=== PATIENT | female | born 1990 | race Caucasian/White ===

== ENCOUNTER 2023-06-26 10:54 | Outpatient (AMB) | payer MEDICAID, SELFPAY ==
--- NOTE | 2023-06-26 10:57 | A.OFFVIS_ITS ---
Intake Vital Signs 06/26/23 11:02 Height 5 ft Weight 98 lb 6 oz BMI 19.2 BP 98/64 Blood Pressure Location Rt brachial Position Sitting Pulse 93 Pulse Source Pulse Oximeter Pulse Oximetry (%) 98 Intake Visit Reasons: ENP-Concussion w/loss of Consciousness/Lvm Intake Note: Patient presents for loss of consciousness. I've had 3 concussion in 3 years last one was in November. Allergies codeine Allergy (Severe, Verified 06/18/23 10:01) Rash naproxen Allergy (Severe, Verified 06/18/23 10:01) Muscle Pain felxeril Allergy (Severe, Uncoded 06/26/23 11:04) sleep tpo long after taking Medication List - Last Reconciled 06/26/23 by Evangelina Nelson, NAYELI amitriptyline 50 mg PO BEDTIME atenolol 25 mg PO DAILY ibuprofen 600 mg PO Q8H PRN levonorgestrel (Mirena) intrauterine lorazepam 0.5 mg PO BEDTIME PRN rizatriptan 5 mg PO Q2-4H PRN HPI HPI Comments History of Present Illness Details Left-handed 33-yr-old female presents for new pt evaluation of headache disorder, concussion. Pt is accompanied by her partner. Pt comes to reestablish care with neurology. Pt states she has migraine since age 5. However, the migraine attacks and frequency have increased in the last couple of years following a series on concussions, the last being in November 2022. She has also had increased cognitive difficulties since the concussions- STM lapses, brain fog. Pt reports in November 2022, she had LOC and fall from a toilet while trying to have a constipated bowel movement. In Feb 2022, she had another concussion, she fell while packing up her minivan and in an effort not to fall back, tried to move forward and struck the top of her head. She was out of work x's 3 months d/t migraine and cognitive s/s. She had another concussion in january 2021- was out of work x's 2 weeks. Since that concussion, there has been an uptick in her migraine attack frequency and intensity (previously a couple of attacks per month, but increased to 3-4 times a week). Headache questionnaire: Previous work-up? None Typical headache characteristics: Prodrome symptoms? Unaware Aura? Varies- more often left eye blurriness. Rarely bejeweled look- like a kaleidoscope. Location, quality, characteristics? Often in bilateral temples, can be back of head/neck, and occasionally midfrontal- throbbing, sharp shooting. . Pain intensity? Usually 5-7/10, at worst 10/10 Associated symptoms? Photophobia, phonophobia, rarely osmophobia, some allodyni a, skin sensitivity/creepy crawling sensation (does have some RLS s/s), nausea, vomiting if severe, worsening brain fog, some dizziness, activity intolerance. Focal weakness, Parethesias, Autonomic s/s? sometimes numbness in arms, some nasal congestion Postdrome? residual Triggers? not eating/drinking, skipping coffee, sleep deprivation Any positional, valsalva, exertional, sexual activity triggers? none Menstrual triggers? has h/o menstrual migraine- but resolved w/ using IUD Time of day? mid-afternoon to early evening Duration? 2-3 hrs to 2-3 days, the longest was 2 wks. Frequency? 15-20 headaches day per month How does headache impact your life? 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 Current acute medication use/interventions: Rizatriptan 5mg ODT- helps some but causes nausea. Previous acute medication use: Sumatriptan- does not recall effect Current preventative medication use: Amitriptyline 50mg qhs, Atenolol 25mg qam. Previous preventative medication use: None other Non-pharmacological interventions: Meditate, some yoga, somatic movements History of musculoskeletal disorders or injury? Left shoulder pain x's approx 1.5 yrs- scheduled for MRI, f/b [facility]. Has had jaw expansion suregry- s/p hardware placement. History of concussion/head injury? as above History of mood disorder? anxiety, depression, PTSD. Has some hyperactivity of her mind, poor focus- since childhood- may need more/less background noise, has never had ADD testing. History of sleep disorder? Sleep issues. Difficulty falling asleep or staying asleep. Can be restless. Very vivid dreams. Rare leg cramps. Has creepy crawling sensation at rest. History of respiratory disease? Asthma History of CV disease? None. History of coagulopathy? None. Has h/o anemia History of endocrine or metabolic disease? None History of seizure? None History of GI disorder? Can have constipation at times Family planning? None Family history of migraine or other headache disorder? Mother, maternal grandmother, paternal grandmother and aunt. [facility] Surgical History (Updated 06/18/23 @ 10:06 by MADALYN Joyce) History of mandibular surgery Family History Father Cleft lip Asthma Brother Asthma Hyperlipidemia Sister Asthma Social History Alcohol intake: never Patient Tobacco Use Status: Never used Tobacco Substance Use Type: Marijuana Review of Systems Const Details: See scanned ROS form Physical Exam Vital Signs: Last Vital Signs Pulse 93 06/26/23 11:02 BP 98/64 06/26/23 11:02 Pulse Ox 98 06/26/23 11:02 BMI result Body Mass Index 19.2 Const Orientation/consciousness: patient oriented x3 HEENT Other: No palpable scalp tenderness. Head: Yes normocephalic Resp Effort & Inspection: normal respiratory effort and able to speak in complete sentences Neuro General: patient oriented x3 Cranial nerves: Yes CN's II-XII intact bilaterally Cognition (Neuro): normal cognition Gait exam (Neuro): Normal gait present Motor exam (neuro): 5/5 motor strength present throughout Deep tendon reflexes (DTR's): Right triceps reflex intensity grade: 2+, Left triceps reflex intensity grade: 2+, Rt Biceps (C5, C6): 2+, Left biceps reflex intensity grade: 2+, Right brachioradialis reflex intensity grade: 2+, Left brachioradialis reflex intensity grade: 2+, Right patellar reflex intensity grade: 2+ and Left patellar reflex intensity grade: 2+ Coordination: [id number] test normal Pupils: Normal pupillary reactivity/response: bilateral Psych Appearance: grossly normal Mental Status: mental status grossly normal Speech and movement: Normal speech and movement present Affect: normal affect Attitude: cooperative Thought process: Normal thought process present Assessment & Plan Assessment & Plan (1) Postconcussive syndrome: Code(s): F07.81 - Postconcussional syndrome (2) Anemia: Code(s): D64.9 - Anemia, unspecified (3) Chronic migraine without aura: Code(s): G43.709 - Chronic migraine without aura, not intractable, without status migrainosus (4) Migraine with aura: Comment: Rare episodes of left eye visual aura - sees bejeweled images. Numbness in arms. Code(s): G43.109 - Migraine with aura, not intractable, without status migrainosus (5) Cognitive dysfunction: Code(s): F09 - Unspecified mental disorder due to known physiological condition (6) Sleep difficulties: Comment: restlessness, creepy crawling sensation- ? RLS, ? PLMS Code(s): G47.9 - Sleep disorder, unspecified Plan Pt advised to undergo brain MRI d/t worsening headaches, cognitive difficulties in setting of multiple concussions. Will check labs for common etiologies of RLS s/s, which may be negatively affecting her sleep quality. For overall headache management: Discussed importance of good self-care, including but not limited to maintaining a healthy diet, adequate fluid intake, adequate sleep, and engaging in regular physical activity. For headache triggers: Track headaches, especially after any treatment regimen changes. Migraine [employer] is one of many headache tracking apps. Light sensitivity tips: Patient may try blue light filtering glasses, green glasses, green light therapy.. For acute headache treatment: Discussed importance of taking acute medications at the first sign of headache, however stressed importance of avoiding acute medication overuse (especially with combined headache medications). Hold Rizatripatn ODT- causes nausea. Trial Sumatriptan 100mg tab, 1/2 - 1 tab (50-100mg) at onset of headache, may repeat in 2 hours. Max of 2 tabs (200mg) per 24 hours. May adjunct with OTC Tylenol 650mg q 4 hours, Ibuprofen 600mg q 6 hours, or Naproxen 440mg q 12 hrs prn. Reviewed potential adverse effects of triptans, including but not limited to nausea, fatigue, chest tightness/tingling (usually passes within a few minutes), medication overuse headaches. Previous acute migraine medication trials: Rizatripatn ODT- causes nausea Acute migraine medication contraindications: None at this time For headache prevention medication: Discussed that preventative medications should be taken routinely as prescribed for best effect, it may take several weeks for full effect to take effect. Start Riboflavin 400mg qam Start Magnesium 400mg qhs Start Emgality 240mg sc x's 1 then 120mg sc q month Continue Amitriptyline 50mg qhs Continue Atenolol 25mg qam. Reviewed potential adverse effects of Emgality, including but not limited to injection site reactions. Previous migraine prevention medication trials: None other Migraine prevention medication contraindications: Would not increase TCA d/t RLS s/s or BB d/t asthma dx. Information also given on non-pharmacological interventions, such as Cefaly or Nerivio neuromodulation devices. Pt to follow-up in 4-6 wks or sooner prn. Orders: Orders Comprehensive Met. Panel Today D64.9 - Anemia, unspecified, F09 - Unspecified mental disorder due to known physiological condition, F32.A - Depression, unspecified, R53.83 - Other fatigue Ferritin Today D64.9 - Anemia, unspecified, F09 - Unspecified mental disorder due to known physiological condition, F32.A - Depression, unspecified, R53.83 - Other fatigue Transferrin Today D64.9 - Anemia, unspecified, F09 - Unspecified mental disorder due to known physiological condition, F32.A - Depression, unspecified, R53.83 - Other fatigue Vitamin B12 and Folate Today D64.9 - Anemia, unspecified, F09 - Unspecified mental disorder due to known physiological condition, R53.83 - Other fatigue MR head/brain wo con Today F07.81 - Postconcussional syndrome, F09 - Unspecified mental disorder due to known physiological condition, R20.0 - Anesthesia of skin Complete Blood Count Auto Diff Today D64.9 - Anemia, unspecified, F09 - Unspecified mental disorder due to known physiological condition, F32.A - Depression, unspecified, R53.83 - Other fatigue IRON PROFILE Today D64.9 - Anemia, unspecified, F09 - Unspecified mental disorder due to known physiological condition, F32.A - Depression, unspecified, R53.83 - Other fatigue TSH reflex Free T4 Today F09 - Unspecified mental disorder due to known physiological condition, F32.A - Depression, unspecified, R53.83 - Other fatigue Medications: New riboflavin (vitamin B2) 400 mg PO DAILY 30 days 30 tabs 6RF magnesium oxide may hold for loose stools 400 mg PO BEDTIME 30 days 30 tabs 6RF galcanezumab-gnlm (Emgality Pen) 120 mg subcut ONCE 30 days 1 mL 6RF Coding Level of Care Code New Pt Level 4 (52368) Diagnoses Postconcussive syndrome F07.81 Anemia D64.9 Chronic migraine without aura G43.709 Migraine with aura G43.109 Cognitive dysfunction F09 Sleep difficulties G47.9
[2023-06-26 11:02] VITALS: BP 98/64; PULSE 93; O2SAT 98; BMI 19.2
== END 2023-06-26 12:07 | disposition home or self-care (01) ==
PROVIDERS: PCP Family Medicine; Visit Provider Nurse Practitioner Family
DX: G43.709 Chronic migraine without aura, not intractable, without status migrainosus (principal); G43.109 Migraine with aura, not intractable, without status migrainosus; D64.9 Anemia, unspecified; Z87.820 Personal history of traumatic brain injury; F06.70 Mild neurocognitive disorder due to known physiological condition without behavioral disturbance; G47.9 Sleep disorder, unspecified
CPT/HCPCS: 99204

== ENCOUNTER → 2023-06-26 10:54 | Outpatient (BNVA) | payer MEDICAID, SELFPAY | PROVIDERS: PCP Family Medicine; Visit Provider Nurse Practitioner Family | DX: G43.109 Migraine with aura, not intractable, without status migrainosus (principal); G43.709 Chronic migraine without aura, not intractable, without status migrainosus; F07.81 Postconcussional syndrome; G47.9 Sleep disorder, unspecified; F09 Unspecified mental disorder due to known physiological condition; D64.9 Anemia, unspecified | CPT/HCPCS: 99202 ==

== ENCOUNTER 2023-08-06 07:41 | Outpatient (AMB) | payer MEDICAID, SELFPAY ==
--- NOTE | 2023-08-06 07:43 | A.OFFVIS_ITS ---
Intake Vital Signs 08/06/23 07:46 Height 5 ft BP 94/80 Blood Pressure Location Rt brachial Position Sitting Pulse 71 Pulse Source Pulse Oximeter Pulse Oximetry (%) 99 Oxygen Delivery Method Room Air Intake Visit Reasons: 6 wks f/u per K.H Concussion w/loss of Conscious Intake Note: Patient presents for 6 week follow up. I've been having eye twitch for about a week and a half, very frustrating Allergies codeine Allergy (Severe, Verified 08/06/23 07:47) Rash naproxen Allergy (Severe, Verified 08/06/23 07:47) Muscle Pain felxeril Allergy (Severe, Uncoded 08/06/23 07:47) sleep tpo long after taking Medication List - Last Reconciled 08/06/23 by NAYELI Aguiar amitriptyline 50 mg PO BEDTIME atenolol 25 mg PO DAILY galcanezumab-gnlm (Emgality Pen) 120 mg subcut ONCE 30 days ibuprofen 600 mg PO Q8H PRN levonorgestrel (Mirena) intrauterine lorazepam 0.5 mg PO BEDTIME PRN magnesium oxide 400 mg PO BEDTIME 30 days riboflavin (vitamin B2) 400 mg PO DAILY 30 days rizatriptan 5 mg PO Q2-4H PRN HPI HPI Comments History of Present Illness Details 33-yr-old female presents for f/u visit. Pt denies any significant interval medical changes. She has not had labs done yet- family has been repeatedly sick w/ RSV, strep, Covid. Pt herself has not been sick. She is having less headaches overall. She is having a lower grade headache/migraine- about once a week. She has been sleeping more and reducing her stress level. Increased exercise, yoga, and doing float spa once a month. Weight is stable since last visit. Eating better, Increased protein intake. She has been noticing a left eye twitch x's the past 1.5 wks- it is visible to others, and one day it made it look like the lights were flickering. She has started Emgality, B2 Mag, and also D and K. She is compliant w/ Amitriptyline. Baseline headache characteristics: Aura- varies- more often left eye blurriness. Rarely bejeweled look- like a kaleidoscope. Headache: 5-7/10, at worst 10/10 pain often in bilateral temples, can be back of head/neck, and occasionally midfrontal- throbbing, sharp shooting. A/w: Photophobia, phonophobia, rarely osmophobia, some allodynia, skin sensi tivity/creepy crawling sensation (does have some RLS s/s), nausea, vomiting if severe, worsening brain fog, some dizziness, activity intolerance, sometimes numbness in arms, some nasal congestion. And residual postdrome. Triggers- not eating/drinking, skipping coffee, sleep deprivation. h/o menstrual migraine- but resolved w/ using IUD Time of day? mid-afternoon to early evening Current number of typical migraine days per month: 4 Average painfulness of these migraines: milder Current number of non-migraine headache days per month: 4 Average painfulness of these headaches: mild Current number of days of acute medication use per month: 4 Previous number of migraine days per month prior to starting current preventive tx: 2 -3 hrs to 2-3 days, the longest was 2 wks and 15-20 headaches day per month PFSH Surgical History History of mandibular surgery Family History Father Cleft lip Asthma Brother Asthma Hyperlipidemia Sister Asthma Social History Alcohol intake: never Patient Tobacco Use Status: Never used Tobacco Substance Use Type: Marijuana Physical Exam Vital Signs: Last Vital Signs Pulse 71 08/06/23 07:46 BP 94/80 08/06/23 07:46 Pulse Ox 99 08/06/23 07:46 Oxygen Delivery Method Room Air 08/06/23 07:46 Const General: cooperative and no acute distress Orientation/consciousness: patient oriented x3 Resp Effort & Inspection: normal respiratory effort and able to speak in complete sentences Neuro General: patient oriented x3 Cranial nerves: Yes CN's II-XII intact bilaterally Cognition (Neuro): normal cognition Psych Appearance: grossly normal Mental Status: mental status grossly normal Speech and movement: Normal speech and movement present Affect: normal affect Attitude: cooperative Assessment & Plan Assessment & Plan (1) Eye twitch: Code(s): G24.5 - Blepharospasm (2) Fatigue: Code(s): R53.83 - Other fatigue (3) Migraine with aura: Comment: Rare episodes of left eye visual aura - sees bejeweled images. Numbness in arms. Code(s): G43.109 - Migraine with aura, not intractable, without status migrainosus (4) Chronic migraine without aura: Code(s): G43.709 - Chronic migraine without aura, not intractable, without status migrainosus (5) Sleep difficulties: Comment: restlessness, creepy crawling sensation- ? RLS, ? PLMS Code(s): G47.9 - Sleep disorder, unspecified Plan For eye twitch- Will check labs. Will f/u on order for brain MRI d/t worsening headaches, cognitive difficulties in setting of multiple concussions. Labs as ordered for common etiologies of RLS s/s, which may be negatively affecting her sleep quality. ? For overall headache management: Continue to optimize good self-care, including but not limited to maintaining a healthy diet, adequate fluid intake, adequate sleep, and engaging in regular physical activity. Track headaches. ? For acute headache treatment: Sumatriptan 100mg tab, 1/2 - 1 tab (50-100mg) at onset of headache, may repeat in 2 hours. Max of 2 tabs (200mg) per 24 hours. May adjunct with OTC Tylenol 650mg q 4 hours, Ibuprofen 600mg q 6 hours, or Naproxen 440mg q 12 hrs prn. Previous acute migraine medication trials: Rizatripatn ODT- causes nausea Acute migraine medication contraindications: None at this time ? For headache prevention medication: Riboflavin 400mg qam Magnesium 400mg qhs Emgality 120mg sc q month Continue Amitriptyline 50mg qhs- consider decreasing if eye twitch persists. Continue Atenolol 25mg qam. Previous migraine prevention medication trials: None other Migraine prevention medication contraindications: Would not increase TCA d/t RLS s/s or BB d/t asthma dx. ? Pt to follow-up in 6 months or sooner prn. Orders: Orders Amitriptyline (Elavil), Serum 08/06/23 G24.5 - Blepharospasm, R53.83 - Other fatigue Magnesium 08/06/23 G24.5 - Blepharospasm, R53.83 - Other fatigue Creatine Kinase Total 08/06/23 G24.5 - Blepharospasm, R53.83 - Other fatigue Coding Level of Care Code Est Pt Level 4 (96283) Diagnoses Eye twitch G24.5 Fatigue R53.83 Migraine with aura G43.109 Chronic migraine without aura G43.709 Sleep difficulties G47.9
[2023-08-06 07:46] VITALS: BP 94/80; PULSE 71; O2SAT 99
== END 2023-08-06 08:29 | disposition home or self-care (01) ==
PROVIDERS: PCP Family Medicine; Visit Provider Nurse Practitioner Family
DX: G24.5 Blepharospasm (principal); R53.83 Other fatigue; G43.109 Migraine with aura, not intractable, without status migrainosus; G43.709 Chronic migraine without aura, not intractable, without status migrainosus; G47.9 Sleep disorder, unspecified
CPT/HCPCS: 99214

== ENCOUNTER → 2023-08-06 07:41 | Outpatient (BNVA) | payer MEDICAID, SELFPAY | PROVIDERS: PCP Family Medicine; Visit Provider Nurse Practitioner Family | DX: G24.5 Blepharospasm (principal); G43.109 Migraine with aura, not intractable, without status migrainosus; G43.709 Chronic migraine without aura, not intractable, without status migrainosus; G47.9 Sleep disorder, unspecified; R53.83 Other fatigue | CPT/HCPCS: 99212 ==

== ENCOUNTER 2023-08-27 18:44 | Outpatient (REF) | payer MEDICAID, SELFPAY ==
--- NOTE | ~2023-08-27 | MR_ITS ---
EXAMINATION: MR BRAIN WITHOUT CONTRAST CLINICAL INFORMATION: Post concussion syndrome. COMPARISON: None. TECHNIQUE: Multiplanar, multisequence imaging of the brain was performed without contrast. FINDINGS: No diffusion abnormalities are identified to suggest an acute infarct. The ventricles are normal in size. No mass effect or midline shift is seen. There are a few foci of T2 hyperintense signal abnormality in the right frontal centrum semiovale, the largest measuring 1.5 cm in size. The remainder of the brain parenchyma appears normal. No extra-axial fluid collections are seen. The brainstem and cerebellum are normal. The gradient refocused acquisition demonstrates no pathologic magnetic susceptibility artifact to indicate underlying acute or chronic blood products. The craniovertebral junction, marrow signal, and midline structures are normal. The major intracranial flow voids at the level of the [place] are preserved. The dural venous sinus flow voids are maintained. The mastoid air cells and paranasal sinuses are well aerated. MR/MR head/brain wo con IMPRESSION: Aforementioned foci of signal abnormality in the high right frontal white matter are entirely nonspecific. Otherwise, no acute intracranial process.
== END 2023-08-27 18:45 | disposition home or self-care (01) ==
LOC: HO.MRI 18:44
PROVIDERS: Visit Provider Nurse Practitioner Family
DX: F07.81 Postconcussional syndrome (principal); F09 Unspecified mental disorder due to known physiological condition; R20.0 Anesthesia of skin
CPT/HCPCS: 70551

== ENCOUNTER 2023-11-21 08:19 | Outpatient (AMB) | payer MEDICAID, SELFPAY ==
[2023-11-21 08:28] VITALS: BP 98/72; PULSE 100; O2SAT 98; BMI 18.0
--- NOTE | 2023-11-21 08:28 | A.OFFVIS_ITS ---
Vital Signs 11/21/23 08:28 Height 5 ft Weight 92 lb BMI 18.0 BP 98/72 Blood Pressure Location Rt brachial Position Sitting Pulse 100 Pulse Source Pulse Oximeter Pulse Oximetry (%) 98 Oxygen Delivery Method Room Air Intake Visit Reasons: 6 mnts f/u-LVM Intake Note: Patient presents for 6 month follow up. patient's headaches are better, emgality seems to be working Allergies codeine Allergy (Severe, Verified 11/21/23 08:31) Rash naproxen Allergy (Severe, Verified 11/21/23 08:31) Muscle Pain felxeril Allergy (Severe, Uncoded 11/21/23 08:31) sleep tpo long after taking Medication List - Last Reconciled 11/21/23 by NAYELI Aguiar amitriptyline 50 mg PO BEDTIME atenolol 25 mg PO DAILY galcanezumab-gnlm (Emgality Pen) 120 mg subcut ONCE 30 days ibuprofen 600 mg PO Q8H PRN levonorgestrel (Mirena) intrauterine lorazepam 0.5 mg PO BEDTIME PRN magnesium oxide 400 mg PO BEDTIME 30 days riboflavin (vitamin B2) 400 mg PO DAILY 30 days rizatriptan 5 mg PO Q2-4H PRN HPI Comments Details: 33-yr-old female presents for f/u visit. Pt denies any significant interval medical changes. She slowly weaned off the Amitriptyline. The constant left eye twitching has stopped. But does still have intermittent facial twit- left cheek, right eyebrow, right lower lid. The right eyebrow twitch seems to be triggered by stress- her children arguing. She has also been noticing bilateral hip and leg numbness at night. No interval syncopal episodes. Continues to have episodes of cognitive difficulties- spacing out, difficulty doing her homework. Pt did the labs- however we do not have the results. Since June, she has had 3-4 migraine attacks. Most were easily treated w/ Ibuprofen. Only 1 lasted 2 days, but notes she had not taken water well before that. Tolerating Emgality well. Still has a friend who is a nurse do it for her. Baseline headache characteristics: Aura: Varies- more often left eye blurriness. Rarely bejeweled look- like a kaleidoscope. Moderate to Severe, Often in bilateral temples, can be back of head/neck, and occasionally midfrontal- throbbing, sharp shooting. A/w photophobia, phonophobia, rarely osmophobia, some allodynia, skin sensitivity/creepy crawling sensation (does have some RLS s/s), nausea, vomiting if severe, worsening brain fog, some dizziness, activity intolerance, sometimes numbness in arms, some nasal congestion 08/27/23, MR BRAIN WITHOUT CONTRAST FINDINGS: No diffusion abnormalities are identified to suggest an acute infarct. The ventricles are normal in size. No mass effect or midline shift is seen. There are a few foci of T2 hyperintense signal abnormality in the right frontal centrum semiovale, the largest measuring 1.5 cm in size. The remainder of the brain parenchyma appears normal. No extra-axial fluid collections are seen. The brainstem and cerebellum are normal. The gradient refocused acquisition demonstrates no pathologic magnetic susceptibility artifact to indicate underlying acute or chronic blood products. The craniovertebral junction, marrow signal, and midline structures are normal. The major intracranial flow voids at the level of the [place] are preserved. The dural venous sinus flow voids are maintained. The mastoid air cells and paranasal sinuses are well aerated. IMPRESSION: Aforementioned foci of signal abnormality in the high right frontal white matter are entirely nonspecific. Otherwise, no acute intracranial process. [facility] Surgical History History of mandibular surgery Family History Father Cleft lip Asthma Brother Asthma Hyperlipidemia Sister Asthma Social History Alcohol intake: never Patient Tobacco Use Status: Never used Tobacco Substance Use Type: Marijuana Physical Exam Vital Signs: Last Vital Signs Pulse 100 11/21/23 08:28 BP 98/72 11/21/23 08:28 Pulse Ox 98 11/21/23 08:28 Oxygen Delivery Method Room Air 11/21/23 08:28 BMI result Body Mass Index 18.0 Const General: cooperative and no acute distress Orientation/consciousness: patient oriented x3 Resp Effort & Inspection: normal respiratory effort and able to speak in complete sentences Neuro General: patient oriented x3 Cranial nerves: Yes CN's II-XII intact bilaterally Cognition (Neuro): normal cognition Psych Appearance: grossly normal Mental Status: mental status grossly normal Speech and movement: Normal speech and movement present Affect: normal affect Attitude: cooperative Assessment & Plan Assessment & Plan (1) Abnormal finding on MRI of brain: Comment: a few foci of T2 hyperintense signal abnormality in the right frontal centrum semiovale, the largest measuring 1.5 cm in size. Code(s): R90.89 - Other abnormal findings on diagnostic imaging of central nervous system Category: Medical (2) Cognitive dysfunction: Code(s): F09 - Unspecified mental disorder due to known physiological condition Category: Medical (3) Bilateral leg numbness: Code(s): R20.0 - Anesthesia of skin Category: Medical (4) Facial twitching: Code(s): G51.4 - Facial myokymia Category: Medical (5) Migraine with aura: Comment: Rare episodes of left eye visual aura - sees bejeweled images. Numbness in arms. Code(s): G43.109 - Migraine with aura, not intractable, without status migrainosus Category: Medical Plan For eye twitch and RLS- Labs WNL. Reviewed brain MRI w/o report and images- Overall normal, with a few foci of T2 hyperintense signal abnormality in the right frontal centrum semiovale, the largest measuring 1.5 cm in size. Pt advised to undergo f/u brain MRI w/wo, and c-spine, and t-spine MRI w/wo and EEG- to further evaluate 1.5 cm white matter lesion, as pt has cognitive difficulties, h/o syncope, facial twitching, leg numbness. For overall headache management: Continue to optimize good self-care, including but not limited to maintaining a healthy diet, adequate fluid intake, adequate sleep, and engaging in regular physical activity. Track headaches. ? For acute headache treatment: Sumatriptan 100mg tab, 1/2 - 1 tab (50-100mg) at onset of headache, may repeat in 2 hours. Max of 2 tabs (200mg) per 24 hours. May adjunct with OTC Tylenol 650mg q 4 hours, Ibuprofen 600mg q 6 hours, or Naproxen 440mg q 12 hrs prn. Previous acute migraine medication trials: Rizatripatn ODT- causes nausea Acute migraine medication contraindications: None at this time ? For headache prevention medication: Riboflavin 400mg qam Magnesium 400mg qhs Emgality 120mg sc q month Pt has stopped Amitriptyline 50mg qhs. Continue Atenolol 25mg qam. Previous migraine prevention medication trials: Amitriptyline- caused increased facial twitching. Migraine prevention medication contraindications: Would not increase TCA d/t RLS s/s or BB d/t asthma dx. ? F/u upon review of above and in-clinic in 6 months or sooner prn. Orders: Orders MR cervical spine wo/w con Today F09 - Unspecified mental disorder due to known physiological condition, G51.4 - Facial myokymia, R20.0 - Anesthesia of skin MR thoracic spine wo/w con Today F09 - Unspecified mental disorder due to known physiological condition, G51.4 - Facial myokymia, R20.0 - Anesthesia of skin MR head/brain wo/w con Today F09 - Unspecified mental disorder due to known physiological condition, G51.4 - Facial myokymia, R20.0 - Anesthesia of skin EEG electroencephalogram Today F09 - Unspecified mental disorder due to known physiological condition, G51.4 - Facial myokymia, R55 - Syncope and collapse Medications: New sumatriptan succinate (0.5 - 1 x 100 mg) 50 - 100 mg orally at onset of headache, may repeat in 2 hrs PRN; max 2 tabs per day or 4 tabs/week (may take with Ibuprofen) 30 days 12 tabs 6RF migraine headache Coding Level of Care Code Est Pt Level 4 (40471) Diagnoses Abnormal finding on MRI of brain R90.89 Cognitive dysfunction F09 Bilateral leg numbness R20.0 Facial twitching G51.4 Migraine with aura G43.109
== END 2023-11-21 09:37 | disposition home or self-care (01) ==
PROVIDERS: PCP Family Medicine; Visit Provider Nurse Practitioner Family
DX: R90.89 Other abnormal findings on diagnostic imaging of central nervous system (principal); R41.89 Other symptoms and signs involving cognitive functions and awareness; R20.0 Anesthesia of skin; G51.4 Facial myokymia; G43.109 Migraine with aura, not intractable, without status migrainosus
CPT/HCPCS: 99214

== ENCOUNTER → 2023-11-21 08:19 | Outpatient (BNVA) | payer MEDICAID, SELFPAY | PROVIDERS: PCP Family Medicine; Visit Provider Nurse Practitioner Family | DX: R90.89 Other abnormal findings on diagnostic imaging of central nervous system (principal); F09 Unspecified mental disorder due to known physiological condition; R20.0 Anesthesia of skin; G43.109 Migraine with aura, not intractable, without status migrainosus; G51.4 Facial myokymia | CPT/HCPCS: 99212 ==

== ENCOUNTER 2023-11-29 15:44 | Outpatient (REF) | payer MEDICAID, SELFPAY ==
--- NOTE | ~2023-11-29 | MR_ITS ---
EXAMINATION: MR BRAIN WITHOUT AND WITH CONTRAST CLINICAL INFORMATION: Anesthesia of the skin. COMPARISON: MR brain 08/27/2023. TECHNIQUE: Multiplanar MR imaging of the brain was performed without and with contrast. A total of 4.5 mL Gadavist was utilized for this examination. FINDINGS: There are a few scattered nonspecific foci of T2 FLAIR signal hyperintensity within the right frontal centrum semiovale with no associated pathological enhancement on postcontrast images. These findings have remained stable when compared to prior imaging from 08/27/2023. Otherwise no evidence of new or worsening white matter disease. Postcontrast images reveal no abnormal intracranial mass or enhancement. No intracranial mass effect or midline shift. No hydrocephalus. Midline structures including the cervicomedullary junction are normal. No acute bone marrow signal changes. There is no acute territorial infarct. No pathological magnetic susceptibility artifact. Intracranial vascular flow voids are maintained. There is no mastoid middle ear effusion. No active paranasal sinus disease. Globes and orbits are grossly symmetric. MR/MR head/brain wo/w con IMPRESSION: Stable examination. There are a few nonspecific signal changes within the right frontal centrum semiovale that have remained unchanged when compared to prior imaging from 08/27/2023. No evidence of new or worsening white matter disease. No abnormal intracranial mass or enhancement. No evidence of acute territorial infarct or hemorrhage.
[2023-11-29] MEDS: gadobutroL 7.5 ML VIAL 4.5 ML IVPUSH (16:43)
== END 2023-11-29 15:45 | disposition home or self-care (01) ==
LOC: HO.MRI 15:44
PROVIDERS: PCP Family Medicine; Visit Provider Nurse Practitioner Family
DX: R20.0 Anesthesia of skin (principal); F09 Unspecified mental disorder due to known physiological condition; G51.4 Facial myokymia
CPT/HCPCS: 70553; A9585

== ENCOUNTER 2023-12-04 07:45 | Outpatient (REF) | payer MEDICAID, SELFPAY ==
--- NOTE | 2023-12-04 07:48 | EEG_ITS ---
FINDINGS: The waking background activity consists of a moderate voltage 10 to 11 hertz posteriorly alpha frequency that is seen symmetrically and attenuates well with eye opening while low voltage fast frequencies predominate anteriorly. Volvulus is characterized by diffuse theta slowing. Early few stages are entered briefly. Arousals are unremarkable. Photic stimulation is without activation. Hyperventilation was omitted. No focal, lateralizing or paroxysmal discharges are seen. IMPRESSION: This awake and drowsy EEG is within normal limits. MD GARRETT Kohler/JAVIER / [id number]
== END 2023-12-04 07:46 | disposition home or self-care (01) ==
LOC: HO.NEURO 07:45
PROVIDERS: Visit Provider Nurse Practitioner Family
DX: R55 Syncope and collapse (principal); G51.4 Facial myokymia; F09 Unspecified mental disorder due to known physiological condition
CPT/HCPCS: 95816

== ENCOUNTER 2023-12-25 07:52 | Outpatient (REF) | payer MEDICAID, SELFPAY ==
--- NOTE | ~2023-12-25 | MR_ITS ---
EXAMINATION: MR THORACIC SPINE WITHOUT AND WITH CONTRAST CLINICAL INFORMATION: Anesthesia of skin COMPARISON: None. TECHNIQUE: MRI of the thoracic spine was obtained using routine sequences without and with contrast. Intravenous contrast: Gadavist 4 mL. FINDINGS: Normal thoracic kyphosis is preserved. No significant spondylolisthesis. Vertebral body heights are maintained. There is no suspicious osseous lesion. The intervertebral disc space heights are normal. No disc bulges or herniations. There is no significant spinal canal or neural foraminal stenosis at any level. The thoracic spinal cord is normal in signal and morphology. No pathologic intrathecal enhancement. No epidural fluid collection, hematoma, or mass. No significant abnormalities of the paraspinal musculature. No demonstrated abnormalities in the visualized neck or thorax. A couple T2 hyperintense hepatic lesions, the larger of which measures 1.0 cm, presumably cysts. The descending thoracic aorta is of normal contour and caliber. MR/MR thoracic spine wo/w con IMPRESSION: Normal MRI of the thoracic spine.
--- NOTE | ~2023-12-25 | MR_ITS ---
EXAMINATION: MR CERVICAL SPINE WITHOUT AND WITH CONTRAST CLINICAL INFORMATION: Anesthesia of skin. COMPARISON: None. TECHNIQUE: Multiplanar, multisequential imaging of the cervical spine was performed before and after the intravenous administration of 4 mL of Gadavist. FINDINGS: VERTEBRAL BODIES AND PARASPINAL SOFT TISSUES: The marrow signal is within normal limits. There are no compression fractures. Mild posterior subluxations are visible from the C3 through the C6 levels. There is a mild rightward curvature of the cervical spine. The paraspinal soft tissues appear normal. The vertebral artery flow-voids are maintained. The imaged lung apices are grossly clear. No abnormal enhancement is identified. CERVICOMEDULLARY JUNCTION AND VISUALIZED POSTERIOR FOSSA: The craniovertebral junction and imaged portions of the brain demonstrate no acute abnormality. No cord signal abnormality or syrinx is seen. No pathologic intradural enhancement is seen. There is mild mucosal thickening along the floor of the sphenoid sinus cavity. SPINAL LEVELS: C2-C3: No disc pathology. No central canal stenosis or foraminal narrowing. C3-C4: Minimal disc bulge without central canal stenosis or foraminal narrowing. C4-C5: Mild posterior subluxation and shallow disc bulge with endplate spurring. No central canal stenosis. Very mild right foraminal narrowing. C5-C6: Retrosubluxation and disc-osteophyte complex present with mild central canal stenosis and severe right foraminal encroachment. Moderate left foraminal narrowing as well. C6-C7: Very mild disc bulge without central canal stenosis. Mild left foraminal narrowing. C7-T1: No disc pathology, central canal stenosis, or foraminal narrowing. MR/MR cervical spine wo/w con IMPRESSION: Shallow disc-osteophyte complex and posterior subluxation at the C5-C6 level with mild central canal stenosis and moderate to severe foraminal narrowing, more so on the right side. Mild cervical spondylosis elsewhere. Mild rightward cervical spinal curvature. No abnormal enhancement or cord signal abnormality.
[2023-12-25] MEDS: gadobutroL 7.5 ML VIAL IVPUSH (09:40)
== END 2023-12-25 07:53 | disposition home or self-care (01) ==
LOC: HO.MRI 07:52
PROVIDERS: PCP Family Medicine; Visit Provider Nurse Practitioner Family
DX: R20.0 Anesthesia of skin (principal); F09 Unspecified mental disorder due to known physiological condition; G51.4 Facial myokymia
CPT/HCPCS: 72156; 72157; A9585

== ENCOUNTER 2024-06-06 14:47 | Outpatient (REF) | payer MEDICAID, SELFPAY ==
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
== END 2024-06-06 14:48 | disposition home or self-care (01) ==
LOC: HO.NEURO 14:47
PROVIDERS: PCP Physician Assistant; Visit Provider Nurse Practitioner Family
DX: R20.2 Paresthesia of skin (principal)
CPT/HCPCS: 95886; 95909

== ENCOUNTER → 2024-06-06 14:49 | Outpatient (BNV) | payer MEDICAID, SELFPAY | PROVIDERS: PCP Physician Assistant; Visit Provider Physical Medicine & Rehabilitation | DX: R20.2 Paresthesia of skin (principal) | CPT/HCPCS: 95886; 95909 ==

== ENCOUNTER 2024-12-04 09:32 | Outpatient (AMB) | payer MEDICAID, SELFPAY ==
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
[2024-12-04 09:41] VITALS: BP 100/60; PULSE 81; O2SAT 98
== END 2024-12-04 10:18 | disposition home or self-care (01) ==
LOC: HO.HSMS 09:32
PROVIDERS: PCP Physician Assistant; Visit Provider Nurse Practitioner Family
DX: R90.89 Other abnormal findings on diagnostic imaging of central nervous system (principal); G43.109 Migraine with aura, not intractable, without status migrainosus; F09 Unspecified mental disorder due to known physiological condition; G51.4 Facial myokymia; M25.511 Pain in right shoulder; M25.512 Pain in left shoulder
CPT/HCPCS: 99214

== ENCOUNTER → 2024-12-04 09:32 | Outpatient (BNVA) | payer MEDICAID, SELFPAY | PROVIDERS: PCP Physician Assistant; Visit Provider Nurse Practitioner Family | DX: G43.109 Migraine with aura, not intractable, without status migrainosus (principal); F09 Unspecified mental disorder due to known physiological condition; G51.4 Facial myokymia; R90.89 Other abnormal findings on diagnostic imaging of central nervous system; M25.511 Pain in right shoulder; M25.512 Pain in left shoulder | CPT/HCPCS: 99212 ==